=== PATIENT | male | born 1960 | race Caucasian/White ===

== ENCOUNTER → 2016-09-10 | Outpatient (CLI) | payer BC ==
[~2016-09-10] MED LIST: CALCIUM 500500 M2 PO; LORTAB 7.5/5001 TAB PO; MULTIPLE VITAMI1 CAP PO; NO HOME MEDICATIONS; PHENTERMINE15 MG PO; STOOL SOFTENER100 M2 PO; WELLBUTRIN SR150 M1 PO
== END ==
LOC: COL.RAD 09-09 09:45
DX: M79.604 Pain in right leg (principal)

== ENCOUNTER → 2017-03-22 | Outpatient (CLI) | payer BC | LOC: COL.RAD 15:35 | DX: N50.82 Scrotal pain (principal) ==

== ENCOUNTER 2018-04-15 06:23 | Emergency (ER) | payer BC ==
[~2018-04-15] VITALS: Ht 182.9 cm; Wt 118.2 kg
[2018-04-15] MEDS ORDERED: ADVIL200 MG PO (06:37)
[2018-04-15 07:08] LABS: BASO % 0.9 % (0.0-2.0); EOS # 0.1 (0.0-0.7); EOS % 3.2 % (0-4.0); GRAN # 2.7 (1.4-6.5); GRAN % 62.1 % (42.2-75.2); HEMATOCRIT 40.7 % (42.0-52.0); HEMOGLOBIN 14.7 g/dl (13.5-18.0); LYMPH # 1.1 (1.2-3.4); LYMPH % 25.1 % (20.0-51.0); MEAN CELL VOLUME 89 fl (80.0-100.0); MEAN CORPUSCULAR HEMOGLOBIN 32 pg (27.0-31.0); MEAN CORPUSCULAR HGB CONC 36 g/dl (33.0-37.0); MEAN PLATELET VOLUME 9.2 fl (7.4-10.4); MONO # 0.4 (0.1-0.6); MONO % 8.2 % (1.7-9.3); PLATELET COUNT 256 K/mm3 (130-400); RED BLOOD COUNT 4.59 M/mm3 (4.20-5.60); REDCELL DISTRIBUTION WIDTH-CV 12.2 % (11.5-14.5)
[2018-04-15 07:32] LABS: COLLECTION METHOD CLEAN CATCH
[2018-04-15 07:44] LABS: ALBUMIN 3.9 gm/dL (3.5-5.0); CALCIUM 9.1 mg/dL (8.4-10.2); CREATININE, serum 0.82 mg/dL (0.66-1.25); POTASSIUM 4.4 mmol/L (3.4-5.0); TOTAL PROTEIN 6.8 gm/dL (6.4-8.2)
[2018-04-15 07:58] LABS: MUCOUS Present /lpf; PH 6 (5-8); SQUAMOUS EPITHELIAL 0-2 /hpf; URINE APPEARANCE Hazy; URINE BACTERIA None Seen /hpf; URINE BILIRUBIN Negative (NEGATIVE); URINE BLOOD 3+ (NEGATIVE); URINE COLOR Yellow; URINE GLUCOSE Negative (NEGATIVE); URINE KETONE Negative (NEGATIVE); URINE LEUKOCYTE ESTERASE Negative (NEGATIVE); URINE NITRATE Negative (NEGATIVE); URINE PROTEIN(semi-quant) 1+ (NEGATIVE); URINE RBC >50 /hpf; URINE UROBILINOGEN Negative (NEGATIVE)
[2018-04-15] MEDS ORDERED: ZOFRAN 4MG T4 MG/TAB PO (08:32)
[2018-04-15] MEDS ORDERED: NORCO 325 MG-51 TAB PO (08:32)
[2018-04-15 08:49] VITALS: BP 138/78; PULSE 78; TEMP 98.1
== END 2018-04-15 08:56 | disposition home or self-care (01) ==
LOC: COL.ER 06:23
PROVIDERS: Emergency Medicine
DX: N23 Unspecified renal colic (principal); N20.1 Calculus of ureter; Z98.890 Other specified postprocedural states
CPT/HCPCS: J1170; J2405; J7030; Q9967

== ENCOUNTER 2021-05-07 22:32 | Emergency (ER) | payer BC ==
[~2021-05-07] VITALS: Ht 182.9 cm; Wt 125.0 kg
[~2021-05-07 22:32] MED LIST changes: +ADVIL200 MG PO; +NORCO 325 MG-51 TAB PO; +ZOFRAN 4MG T4 MG/TAB PO
[2021-05-07 22:42] VITALS: TEMP 97.5
[2021-05-08 02:15] VITALS: BP 124/81; PULSE 72
== END 2021-05-08 02:20 | disposition home or self-care (01) ==
LOC: COL.ER 22:32
DX: U07.1 COVID-19 (principal); N20.0 Calculus of kidney
CPT/HCPCS: J7030; Q0244